=== PATIENT | female | born 1965 | race Two or more races ===

== ENCOUNTER 2023-12-03 07:01 | Emergency (ER) | payer OTHER ==
[~2023-12-03] VITALS: Ht 162.6 cm; Wt 109.1 kg
[2023-12-03 07:41] LABS: Basophils # (auto) 0.1 10 ^3/uL (0-0.2); Basophils % (auto) 0.6 % (0.0-2.0); Eosinophils # (auto) 0.5 10 ^3/uL (0-0.8); Eosinophils % (auto) 4.4 % (0.0-7.0); Hematocrit 40.6 % (36.0-46.0); Hemoglobin 13.6 g/dL (12.2-16.2); Lymphocytes # (auto) 2.5 10 ^3/uL (0.4-5.4); Lymphocytes % (auto) 23.2 % (10.0-50.0); Mean Corpuscular Hemoglobin 29.1 pg (28.0-32.0); Mean Corpuscular Hgb Conc. 33.4 g/dL (32.0-36.0); Mean Corpuscular Volume 87.3 fL (80.0-100.0); Monocytes # (auto) 0.8 10 ^3/uL (0-1.3); Neutrophils # (auto) 6.8 10 ^3/uL (1.6-8.6); Neutrophils % (auto) 63.8 % (37.0-80.0); Red Blood Cells 4.65 10^6/uL (4.0-5.20); Red Cell Distribution Width 15.4 % (11.8-14.3); White Blood Cell 10.6 10^3/uL (4.4-10.8)
[2023-12-03 07:52] LABS: Partial Thromboplastin Time 27.7 SEC (24.5-34.5); Prothrombin Time 10.6 sec (9.3-11.8)
[2023-12-03 07:56] LABS: Alanine Aminotransferase 31 U/L (7-40); Alkaline Phosphatase 117 U/L (46-116); Anion Gap 6 (5-15); Aspartate Aminotransferase 16 U/L (13-40); BUN/Creatinine Ratio 24.6 (10.0-20.0); Blood Urea Nitrogen 16 mg/dL (9-23); Calcium 9.7 mg/dL (8.7-10.4); Carbon Dioxide 27 mmol/L (20-30); Chloride 107 mmol/L (98-107); Glucose 143 mg/dL (74-106); Potassium 3.7 mmol/L (3.5-5.1); Sodium 140 mmol/L (136-145)
[2023-12-03 07:57] LABS: Albumin 4.4 g/dL (3.2-4.8); Bilirubin, Total 0.4 mg/dL (0.2-1.0); Total Protein 7.5 g/dL (5.7-8.2)
[2023-12-03 08:08] VITALS: TEMP 98.2
[2023-12-03 08:10] VITALS: PULSE 83; RESP 16; O2SAT 95
[2023-12-03 09:04] LABS: Free T3 4.17 pg/mL (2.3-4.2)
[2023-12-03 09:05] LABS: Free T4 (Free Thyroxine) 1.22 ng/dL (0.89-1.76)
[2023-12-03 09:49] VITALS: BP 121/78; PULSE 74; RESP 16; O2SAT 99
== END 2023-12-03 09:55 | disposition home or self-care (01) ==
LOC: ER 07:01
DX: F43.9 Reaction to severe stress, unspecified (principal); R00.2 Palpitations; Z88.8 Allergy status to other drugs, medicaments and biological substances; J45.909 Unspecified asthma, uncomplicated
CPT/HCPCS: 36415; 71045; 80053; 83735; 83880; 84439; 84443; 84481; 84484; 85025; 85610; 85730; 93005